=== PATIENT | male | born 1980 | race Caucasian/White ===

== ENCOUNTER 2020-04-14 20:14 | Emergency (ER) | payer MEDICAID ==
[~2020-04-14] VITALS: Ht 167.6 cm; Wt 68.2 kg
[2020-04-14] MEDS ORDERED: ALBU8HFA IH (20:56)
[2020-04-14] MEDS ORDERED: OXYC10TA59 PO (20:56)
[2020-04-14 23:00] VITALS: BP 132/84
[2020-04-14] MEDS ORDERED: DEXAMETHASONE 1 MG TABLET PO ONE (23:00)
[2020-04-14] MEDS ORDERED: DEXAMETHASONE SOD PHOS 4 MG/ML 5 ML VIAL IM ONE (23:00)
== END 2020-04-14 23:17 | disposition home or self-care (01) ==
LOC: EMS 20:14
DX: T78.40XA Allergy, unspecified, initial encounter (principal); J45.909 Unspecified asthma, uncomplicated; I10 Essential (primary) hypertension; X58.XXXA Exposure to other specified factors, initial encounter
CPT/HCPCS: 96372; 99283; J1100; J8540

== ENCOUNTER 2022-06-27 09:32 | Emergency (ER) | payer OTHER ==
[~2022-06-27] VITALS: Ht 175.3 cm; Wt 77.3 kg
[~2022-06-27 09:32] MED LIST: ALBU18HF12 IH; OXYC10TA59 PO
[2022-06-27] MEDS ORDERED: CYCL10TA16 PO (11:40)
[2022-06-27] MEDS ORDERED: LOSA-382 PO (11:40)
[2022-06-27] MEDS ORDERED: ZOLP10TA8 PO (11:40)
[2022-06-27] MEDS ORDERED: MELO-108 PO (11:40)
[2022-06-27] MEDS ORDERED: BECL10.62 IH (11:40)
[2022-06-27] MEDS ORDERED: LIDOCAINE 5% TRANSDERMAL PATCH TD ONE (11:45)
[2022-06-27] MEDS ORDERED: BACLOFEN 10 MG TABLET PO ONE (11:45)
[2022-06-27] MEDS ORDERED: KETOROLAC TROMETHAMINE 30 MG/ML VIAL IM ONE (11:45)
[2022-06-27 12:30] VITALS: BP 137/86
== END 2022-06-27 12:43 | disposition home or self-care (01) ==
LOC: EMS 09:42
DX: G89.29 Other chronic pain (principal); J45.909 Unspecified asthma, uncomplicated; I10 Essential (primary) hypertension
CPT/HCPCS: 99283; 96372; J1885

== ENCOUNTER 2022-07-19 15:49 | Emergency (ER) | payer OTHER ==
[~2022-07-19] VITALS: Ht 167.6 cm; Wt 68.2 kg
[~2022-07-19 15:49] MED LIST changes: +BECL10.62 IH; +CYCL10TA16 PO; +LOSA-382 PO; +MELO-108 PO; -OXYC10TA59 PO; +ZOLP10TA8 PO
[2022-07-19 15:57] VITALS: BP 152/103
== END 2022-07-19 18:44 | disposition left against medical advice (07) ==
LOC: EMS 15:50
DX: M54.50 Low back pain, unspecified (principal); Z53.21 Procedure and treatment not carried out due to patient leaving prior to being seen by health care provider
CPT/HCPCS: 99281; Z7502

== ENCOUNTER 2023-04-01 02:49 | Emergency (ER) | payer OTHER ==
[~2023-04-01] VITALS: Ht 167.6 cm; Wt 72.7 kg
[~2023-04-01 02:49] MED LIST changes: +ZOLP-162 PO; -ZOLP10TA8 PO
[2023-04-01 02:56] VITALS: TEMP 98.6
[2023-04-01 03:02] VITALS: BP 139/105; PULSE 120; RESP 22
[2023-04-01 03:20] LABS: BASOPHILS % (AUTO) 0.4 % (0.0-2.0); EOSINOPHILS % (AUTO) 0.1 % (1.0-6.0); HEMATOCRIT 44.3 % (41-53); LYMPHOCYTES # (AUTO) 1.4 K/uL (1.0-4.8); MEAN CORPUSCULAR HGB CONC 33.9 G/dL (31.0-37.0); MEAN CORPUSCULAR VOLUME 89 fL (80-100); MONOCYTES # (AUTO) 0.6 K/uL (0.1-1.0); MONOCYTES % (AUTO) 6.8 % (2.0-9.0); NEUTROPHILS # (AUTO) 6.6 K/uL (1.8-7.7); NEUTROPHILS % (AUTO) 76.7 % (40.0-70.0); PLATELET COUNT (AUTO) 346 K/uL (150-450); RED BLOOD CELL COUNT(AUTO) 5.01 MIL/uL (4.50-5.90); RED CELL DISTRIBUTION WIDTH 13.8 % (11.5-14.5); WHITE BLOOD COUNT (AUTO) 8.6 K/uL (4.5-11.0)
[2023-04-01 03:33] LABS: ANION GAP 13 mmol/L (8-16); CALCIUM, TOTAL 9.4 mg/dL (8.8-10.5); CARBON DIOXIDE 23 mmol/L (22-29); CHLORIDE 99 mmol/L (98-107); CREATININE 0.94 mg/dL (0.60-1.30); GLOMERULAR FILTR. RATE CALC > 60 mL/min (>60); GLUCOSE,RANDOM 117 mg/dL (70-110); POTASSIUM 3.4 mmol/L (3.5-5.1); SODIUM SERUM 135 mmol/L (136-145); UREA NITROGEN, BLOOD 9 mg/dL (7-18)
[2023-04-01 03:39] LABS: ALANINE AMINOTRANSFERASE 32 U/L (12-78); ALBUMIN 4.4 g/dL (3.4-5.0); ALKALINE PHOSPHATASE 81 U/L (46-116); ASPARTATE AMINOTRANSFERASE 21 U/L (15-37); BILIRUBIN,TOTAL 0.4 mg/dL (0.1-1.0); TOTAL PROTEIN, SERUM 7.6 g/dL (6.4-8.2)
[2023-04-01 03:41] LABS: TROPONIN I-HIGH SENSITIVITY 11 ng/L (<76)
[2023-04-01] MEDS: KETOROLAC TROMETHAMINE 30 MG/ML VIAL IVP ONE (03:46)
[2023-04-01] MEDS: LORazepam 2 MG/ML VIAL IVP ONE (03:46)
== END 2023-04-01 04:07 | disposition home or self-care (01) ==
LOC: EMS 02:51
DX: R07.89 Other chest pain (principal); F41.9 Anxiety disorder, unspecified; K52.9 Noninfective gastroenteritis and colitis, unspecified; J45.909 Unspecified asthma, uncomplicated; I10 Essential (primary) hypertension
CPT/HCPCS: 99285; 96374; 71045; 96375; 80053; 84484; 85025; 36415; 93005; J1885; J2060

== ENCOUNTER 2024-02-04 19:58 | Emergency (ER) | payer OTHER ==
[~2024-02-04] VITALS: Ht 167.6 cm; Wt 72.7 kg
[2024-02-04 20:11] VITALS: TEMP 98.3
[2024-02-04 21:11] LABS: BASOPHILS % (AUTO) 0.6 % (0.0-2.0); EOSINOPHILS % (AUTO) 3.3 % (1.0-6.0); HEMATOCRIT 44.2 % (41-53); HEMOGLOBIN 14.9 g/dL (13.5-17.5); LYMPHOCYTES # (AUTO) 2.7 K/uL (1.0-4.8); LYMPHOCYTES % (AUTO) 33.8 % (22.0-44.0); MEAN CORPUSCULAR HEMOGLOBIN 29.9 pg (26.0-34.0); MEAN CORPUSCULAR HGB CONC 33.8 G/dL (31.0-37.0); MEAN CORPUSCULAR VOLUME 89 fL (80-100); MONOCYTES # (AUTO) 0.5 K/uL (0.1-1.0); MONOCYTES % (AUTO) 6.3 % (2.0-9.0); NEUTROPHILS # (AUTO) 4.5 K/uL (1.8-7.7); PLATELET COUNT (AUTO) 349 K/uL (150-450); RED BLOOD CELL COUNT(AUTO) 4.98 MIL/uL (4.50-5.90); RED CELL DISTRIBUTION WIDTH 13.6 % (11.5-14.5)
[2024-02-04 21:24] LABS: ANION GAP 9 mmol/L (8-16); CALCIUM, TOTAL 8.8 mg/dL (8.8-10.5); CARBON DIOXIDE 29 mmol/L (22-29); CHLORIDE 101 mmol/L (98-107); CREATININE 1.12 mg/dL (0.60-1.30); GLOMERULAR FILTR. RATE CALC > 60 mL/min (>60); GLUCOSE,RANDOM 90 mg/dL (70-110); POTASSIUM 3.5 mmol/L (3.5-5.1); SODIUM SERUM 139 mmol/L (136-145); UREA NITROGEN, BLOOD 21 mg/dL (7-18)
[2024-02-04 21:25] LABS: LIPASE 38 U/L (16-77)
[2024-02-04] MEDS ORDERED: ACET-66 PO (22:21)
[2024-02-04 22:54] VITALS: BP 125/81; PULSE 78; RESP 18; O2SAT 99
== END 2024-02-04 23:18 | disposition home or self-care (01) ==
LOC: EMS 19:58
DX: K52.9 Noninfective gastroenteritis and colitis, unspecified (principal); J45.909 Unspecified asthma, uncomplicated; I10 Essential (primary) hypertension; Z98.890 Other specified postprocedural states; Z79.51 Long term (current) use of inhaled steroids; Z79.899 Other long term (current) drug therapy; Z80.0 Family history of malignant neoplasm of digestive organs
CPT/HCPCS: 80048; 83690; 85025; 99283

== ENCOUNTER 2024-05-05 22:11 | Emergency (ER) | payer OTHER ==
[~2024-05-05] VITALS: Ht 167.6 cm; Wt 72.7 kg
[~2024-05-05 22:11] MED LIST changes: +ACET-66 PO
[2024-05-05 22:22] VITALS: BP 166/93; PULSE 79; RESP 20; TEMP 97.9; O2SAT 99
[2024-05-05 23:11] LABS: BASOPHILS % (AUTO) 0.7 % (0.0-2.0); EOSINOPHILS % (AUTO) 5.7 % (1.0-6.0); HEMATOCRIT 41.7 % (41-53); HEMOGLOBIN 13.8 g/dL (13.5-17.5); LYMPHOCYTES # (AUTO) 1.8 K/uL (1.0-4.8); LYMPHOCYTES % (AUTO) 23.3 % (22.0-44.0); MEAN CORPUSCULAR HEMOGLOBIN 29.5 pg (26.0-34.0); MEAN CORPUSCULAR HGB CONC 33.1 G/dL (31.0-37.0); MEAN CORPUSCULAR VOLUME 89 fL (80-100); MONOCYTES # (AUTO) 0.5 K/uL (0.1-1.0); NEUTROPHILS # (AUTO) 4.8 K/uL (1.8-7.7); NEUTROPHILS % (AUTO) 63.3 % (40.0-70.0); PLATELET COUNT (AUTO) 310 K/uL (150-450); RED BLOOD CELL COUNT(AUTO) 4.67 MIL/uL (4.50-5.90); RED CELL DISTRIBUTION WIDTH 13.5 % (11.5-14.5); WHITE BLOOD COUNT (AUTO) 7.6 K/uL (4.5-11.0)
[2024-05-05 23:20] LABS: ANION GAP 9 mmol/L (8-16); CALCIUM, TOTAL 8.8 mg/dL (8.8-10.5); CARBON DIOXIDE 30 mmol/L (22-29); CHLORIDE 102 mmol/L (98-107); CREATININE 0.91 mg/dL (0.60-1.30); GLOMERULAR FILTR. RATE CALC > 60 mL/min (>60); GLUCOSE,RANDOM 101 mg/dL (70-110); POTASSIUM 3.6 mmol/L (3.5-5.1); SODIUM SERUM 141 mmol/L (136-145); UREA NITROGEN, BLOOD 19 mg/dL (7-18)
[2024-05-05 23:29] LABS: TROPONIN I-HIGH SENSITIVITY 7 ng/L (<76)
[2024-05-05] MEDS: SODIUM CHLORIDE 0.9% 1,000 ML IV ONE (23:50)
== END 2024-05-06 01:53 | disposition home or self-care (01) ==
LOC: EMS 22:29
DX: R00.2 Palpitations (principal); I10 Essential (primary) hypertension; J45.909 Unspecified asthma, uncomplicated; Z79.51 Long term (current) use of inhaled steroids; Z79.899 Other long term (current) drug therapy; Z72.89 Other problems related to lifestyle
CPT/HCPCS: 99285; 96360; 71045; 80048; 84484; 85025; 36415; 93005; G0480